=== PATIENT | male | born 1965 | race Caucasian/White ===

== ENCOUNTER 2021-02-07 16:08 | Emergency (ER) | payer MEDICARE, OTHER ==
[~2021-02-07 16:08] MED LIST: ALPRAZOLAM0.5 MG PO; AMARYL 2MG TABLE2 MG PO; AMBIEN5 MG PO; ASPIRIN325 MG PO; BACTROBAN CREAM15 GM TOP; CELEXA10 MG PO; COZAAR 50MG TAB50 MG PO; CRESTOR20 MG PO; FERROUS SULFAT325 MG PO; FISH OIL + D31 EACH PO; FISH OIL 1,0001 EAC1 PO; FISH OIL CONCE1 EACH PO; FLEXERIL 10 MG10 MG PO; FLONASE 0.05% N16 GM; FLUZONE QU60 MCG/013 IM; GLUCOPHAGE500 MG PO; IMDUR ER TAB 3030 MG PO; IMDUR ER TAB 6060 MG PO; LOPRESSOR50 MG PO; MIRAPEX0.5 MG PO; MIRAPEX1 MG PO; NEURONTIN 300300 MG PO; NORCO 10-325 T1 EACH PO; OXYCONTIN10 MG PO; PERCOCET 10-321 EACH PO; PLAVIX75 MG PO; PROTONIX 40 MG40 M1 PO; RANEXA500 MG PO; REQUIP1 MG PO; Rolling walker XX; TRESIBA SQ; TRICOR48 MG PO; VICTOZA 3-0.6 MG/0.1 SQ; VITAMIN B-122500 MCG SL; VITAMIN D250000 UNIT PO; VITAMIN D350000 UNIT PO; VOLTAREN100 GM TP; ZETIA 10 MG TAB10 MG PO; ZYLOPRIM 100 M100 MG PO; ZYVOX 600 MG T600 MG PO
[2021-02-07 18:12] LABS: HEMOGLOBIN 13.7 gm/dl (14.0-17.5); RED BLOOD COUNT 4.46 M/UL (4.20-5.50); WHITE BLOOD COUNT 8.5 K/UL (4.5-11.0)
[2021-02-07] MEDS ORDERED: CLEOCIN HCL300 MG PO (19:29)
== END 2021-02-07 19:40 | disposition home or self-care (01) ==
LOC: ER1 16:08
PROVIDERS: Physician Assistant Medical
DX: S61.432A Puncture wound without foreign body of left hand, initial encounter (principal); E11.621 Type 2 diabetes mellitus with foot ulcer; L97.519 Non-pressure chronic ulcer of other part of right foot with unspecified severity; E11.22 Type 2 diabetes mellitus with diabetic chronic kidney disease; N18.9 Chronic kidney disease, unspecified; E78.5 Hyperlipidemia, unspecified; Z88.0 Allergy status to penicillin; Z88.8 Allergy status to other drugs, medicaments and biological substances; Z88.7 Allergy status to serum and vaccine; Z79.01 Long term (current) use of anticoagulants; Z79.02 Long term (current) use of antithrombotics/antiplatelets; X58.XXXA Exposure to other specified factors, initial encounter
CPT/HCPCS: 73130; 73630; 80053; 85025; 85652; 86140; 99283

== ENCOUNTER 2021-02-10 14:00 | Inpatient (IN) | payer MEDICARE, OTHER ==
[~2021-02-10] VITALS: Ht 172.7 cm; Wt 84.4 kg
[~2021-02-10 14:00] MED LIST changes: +CLEOCIN HCL300 MG PO
[2021-02-10 16:11] LABS: HEMOGLOBIN 14.4 gm/dl (14.0-17.5); RED BLOOD COUNT 4.66 M/UL (4.20-5.50); WHITE BLOOD COUNT 6.8 K/UL (4.5-11.0)
[2021-02-10 16:59] LABS: HEMOGLOBIN 13.9 gm/dl (14.0-17.5); RED BLOOD COUNT 4.53 M/UL (4.20-5.50); WHITE BLOOD COUNT 6.5 K/UL (4.5-11.0)
[2021-02-11 05:29] LABS: HEMOGLOBIN 13.5 gm/dl (14.0-17.5); RED BLOOD COUNT 4.46 M/UL (4.20-5.50); WHITE BLOOD COUNT 5.8 K/UL (4.5-11.0)
[2021-02-11] MEDS ORDERED: ZYVOX600 MG PO (09:58)
[2021-02-11] MEDS ORDERED: TRESIBA SQ (09:58)
== END 2021-02-11 11:06 | disposition home or self-care (01) | DRG 639 ==
LOC: ER1 14:00 → CDU 16:48 → MED SURG 4 18:29
PROVIDERS: Internal Medicine; ADMIT Family Medicine
DX: E11.621 Type 2 diabetes mellitus with foot ulcer (principal); E11.51 Type 2 diabetes mellitus with diabetic peripheral angiopathy without gangrene; I25.10 Atherosclerotic heart disease of native coronary artery without angina pectoris; E78.5 Hyperlipidemia, unspecified; Z20.822 Contact with and (suspected) exposure to COVID-19; M19.90 Unspecified osteoarthritis, unspecified site; G25.81 Restless legs syndrome; G47.33 Obstructive sleep apnea (adult) (pediatric); E55.9 Vitamin D deficiency, unspecified; E53.8 Deficiency of other specified B group vitamins; E11.22 Type 2 diabetes mellitus with diabetic chronic kidney disease; I12.9 Hypertensive chronic kidney disease with stage 1 through stage 4 chronic kidney disease, or unspecified chronic kidney disease; N18.2 Chronic kidney disease, stage 2 (mild); G47.00 Insomnia, unspecified; K21.9 Gastro-esophageal reflux disease without esophagitis; F41.9 Anxiety disorder, unspecified; F17.210 Nicotine dependence, cigarettes, uncomplicated; F32.9 Major depressive disorder, single episode, unspecified; Z95.1 Presence of aortocoronary bypass graft; Z95.5 Presence of coronary angioplasty implant and graft; Z90.49 Acquired absence of other specified parts of digestive tract; Z82.49 Family history of ischemic heart disease and other diseases of the circulatory system; Z79.4 Long term (current) use of insulin; Z80.1 Family history of malignant neoplasm of trachea, bronchus and lung; Z88.0 Allergy status to penicillin; Z88.2 Allergy status to sulfonamides; Z88.8 Allergy status to other drugs, medicaments and biological substances; Z88.1 Allergy status to other antibiotic agents; Z91.040 Latex allergy status; Z79.82 Long term (current) use of aspirin; Z79.01 Long term (current) use of anticoagulants
CPT/HCPCS: 36415; 73130; 73630; 73700; 80048; 80053; 82962; 83605; 85025; 85027; 85652; 86140; 87040; 93926; 99283; 99285; J3370; J7070; U0002

== ENCOUNTER → 2021-12-14 | Outpatient (CLI) | payer MEDICARE, OTHER ==
[~2021-12-14] MED LIST changes: +IBU800 MG PO; +ZOFRAN ODT 4 MG4 MG SL; +ZYVOX600 MG PO
== END ==
LOC: CT 11:00
DX: I70.213 Atherosclerosis of native arteries of extremities with intermittent claudication, bilateral legs (principal)
CPT/HCPCS: 75635; Q9967